=== PATIENT | female | born 1990 | race Caucasian/White ===

== ENCOUNTER 2017-01-20 05:02 | Inpatient (IN) | payer OTHER ==
[2017-01-20] MEDS ORDERED: Sodium Chloride 0.9% 2.5 ML Syringe FLUSH PRN (05:10)
[2017-01-20] MEDS ORDERED: Lidocaine 1% 50 ML MDV INJECT PRN (05:10)
[2017-01-20] MEDS ORDERED: Water For Irrigation,Sterile 1,000 ML Container IRR PRN (05:10)
[2017-01-20] MEDS ORDERED: Methylergonovine 0.2 MG/1 ML Amp IM PRN (05:10)
[2017-01-20] MEDS ORDERED: Terbutaline 1 MG/ML SDV SUBCUT PRN (05:10)
[2017-01-20] MEDS ORDERED: Carboprost Tromethamine 250 MCG/1 ML Amp IM PRN (05:10)
[2017-01-20] MEDS ORDERED: Butorphanol 1 MG/ML SDV IVPUSH PRN (05:10)
[2017-01-20] MEDS ORDERED: Misoprostol 200 MCG Tab PO PRN (05:10)
[2017-01-20] MEDS ORDERED: Sodium Chloride 0.9% 10 ML Syringe FLUSH PRN (05:10)
[2017-01-20] MEDS ORDERED: Oxytocin/0.9 % Sodium Chloride 30 UNIT/500 ML BAG IV SCH ×2 (05:15)
[2017-01-20] MEDS: Lactated Ringers 1,000 ML IV SCH ×5 (05:43→12:28)
[2017-01-20] MEDS ORDERED: Ropivacaine HCl/PF 100 ML ONE (10:29)
[2017-01-20] MEDS ORDERED: fentaNYL 100 MCG/2 ML SDV ONE (10:29)
[2017-01-20] MEDS ORDERED: Ropivacaine 0.2% 2 MG/ML 20 ML SDV ONE (10:29)
--- NOTE | 2017-01-20 10:49 | PCM.PREANE ---
Preanesthetic Assessment - Anesthesia/Transfusion/Family Hx Anesthesia History: Prior Anesthesia Without Reaction Family History of Anesthesia Reaction: No Transfusion History: No Prior Transfusion(s) - Review of Systems Other: Reports: None - Physical Assessment Height: 5 ft 5 in Weight: 81.647 kg ASA Class: 2 Mental Status: Alert & Oriented x3 Airway Class: Mallampati = 1 Dentition: Reports: Normal Dentition Thyro-Mental Finger Breadths: 3 Mouth Opening Finger Breadths: 3 ROM/Head Extension: Full - Lab Values: Laboratory Last Values WBC 12.15 K/uL (4.0-11.0) H 01/20/17 05:42 RBC 4.01 M/uL (4.30-5.90) L 01/20/17 05:42 Hgb 12.2 g/dL (12.0-16.0) 01/20/17 05:42 Hct 37.1 % (36.0-46.0) 01/20/17 05:42 MCV 92.5 fL (80.0-98.0) 01/20/17 05:42 MCH 30.4 pg (27.0-32.0) 01/20/17 05:42 MCHC 32.9 g/dL (31.0-37.0) 01/20/17 05:42 RDW Std Deviation 49.3 fl (28.0-62.0) 01/20/17 05:42 RDW Coeff of Stanton 15 % (11.0-15.0) 01/20/17 05:42 Plt Count 160 K/uL (150-400) 01/20/17 05:42 MPV 9.70 fL (7.40-12.00) 01/20/17 05:42 Nucleated RBC % 0.0 /100WBC 01/20/17 05:42 Nucleated RBCs # 0 K/uL 01/20/17 05:42 Blood Type A NEGATIVE 01/20/17 05:42 Antibody Screen NEGATIVE 01/20/17 05:42 - Allergies Allergies/Adverse Reactions: Allergies Allergy/AdvReac Type Severity Reaction Status Date / Time No Known Allergies Allergy Verified 01/20/17 05:17 - Blood Blood Available: Yes Product(s) Available: PRBC - Acknowledgements Anesthesia Type Planned: Epidural Pt an Appropriate Candidate for the Planned Anesthesia: Yes Alternatives and Risks of Anesthesia Discussed w Pt/Guardian: Yes Pt/Guardian Understands and Agrees with Anesthesia Plan: Yes PreAnesthesia Questionnaire - Past Health History Medical/Surgical History: Denies 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/Surgical History 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: , 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 Psychiatric History: Reports: Depression Hematologic History: Reports: Other (See Below) Other Hematologic History: irregular bleeding - Past Surgical History HEENT Surgical History: Reports: Adenoidectomy, Oral Surgery, Tonsillectomy Other HEENT Surgeries/Procedures: wisdom teeth extraction - SUBSTANCE USE Smoking Status *Q: Never Smoker Second Hand Smoke Exposure: No Days Per Week of Alcohol Use: 0 Recreational Drug Use History: No - HOME MEDS Home Medications: Home Meds Vit No.124/Iron/FA [ Vitamin Tablet] 1 each PO DAILY 11/25/14 [ History] - CURRENT (IN HOUSE) MEDS Current Meds: Current Medications Butorphanol Tartrate (Stadol) 1 mg IVPUSH Q1H PRN PRN Reason: Pain Carboprost Tromethamine (Hemabate Ds) 250 mcg IM ASDIRECTED PRN PRN Reason: Post Hemorrhage Lactated Ringer's (Ringers, Lactated) 1,000 mls @ 150 mls/hr IV ASDIRECTED AVELINA Last Admin: 01/20/17 07:29 Dose: 150 mls/hr Oxytocin/Sodium Chloride (Oxytocin 30 Unit/500 Ml-Ns) 30 unit in 500 mls @ 999 mls/hr IV TITRATE AVELINA Oxytocin/Sodium Chloride (Oxytocin 30 Unit/500 Ml-Ns) 30 unit in 500 mls @ 2 mls/hr IV TITRATE AVELINA; 2 MUNITS/MIN PRN Reason: Protocol Last Titration: 01/20/17 08:21 Dose: 10 munits/min, 10 mls/hr Lidocaine HCl (Xylocaine 1%) 50 ml INJECT .ONCE PRN PRN Reason: Laceration repair Methylergonovine Maleate (Methergine) 0.2 mg IM ASDIRECTED PRN PRN Reason: Post Hemorrhage Misoprostol (Cytotec) 200 mcg PO .ONCE PRN PRN Reason: Post Hemorrhage Sodium Chloride (Saline Flush) 10 ml FLUSH ASDIRECTED PRN PRN Reason: Keep Vein Open Sodium Chloride (Saline Flush) 2.5 ml FLUSH ASDIRECTED PRN PRN Reason: Keep Vein Open Sterile Water (Sterile Water For Irrigation) 1,000 ml IRR ASDIRECTED PRN PRN Reason: delivery Terbutaline Sulfate (Brethine) 0.25 mg SUBCUT ASDIRECTED PRN PRN Reason: Tacysystole Discontinued Medications Fentanyl (Sublimaze) Confirm Administered Dose 200 mcg .ROUTE .STK-MED ONE Stop: 01/20/17 10:30 Ropivacaine (Naropin 0.2%) Confirm Administered Dose 100 mls @ as directed .ROUTE .STK-MED ONE Stop: 01/20/17 10:30 Ropivacaine (Naropin 0.2%) Confirm Administered Dose 20 ml .ROUTE .STK-MED ONE Stop: 01/20/17 10:30
[2017-01-20] MEDS ORDERED: Docusate Sodium 100 MG Cap PO PRN (13:57)
[2017-01-20] MEDS ORDERED: Ibuprofen 400 MG Tab PO PRN (13:57)
[2017-01-20] MEDS ORDERED: Benzocaine/Menthol 20%-0.5% Spray 78 GM Cannister TOP PRN (13:57)
[2017-01-20] MEDS ORDERED: Acetaminophen 500 MG Tab PO PRN (13:57)
[2017-01-20] MEDS ORDERED: Witch Hazel Medicated Pads 40/Jar TOP PRN (13:57)
[2017-01-20] MEDS ORDERED: oxyCODONE 5 MG Tab PO PRN (13:57)
[2017-01-20] MEDS ORDERED: Aluminum Hydroxide/Magnesium Hydroxide/Simethicone Susp 30 ML Cup PO PRN (13:57)
[2017-01-20] MEDS ORDERED: Lanolin 100% Cream 7 GM Tube TOP PRN (13:57)
[2017-01-20] MEDS ORDERED: Bisacodyl 10 MG Supp RECTAL PRN (13:57)
[2017-01-20] MEDS: Ibuprofen 800 MG Tab PO PRN (17:44)
--- NOTE | 2017-01-20 21:50 | OR ---
SURGEON: Chapis Adame M.D. DATE OF PROCEDURE: 01/20/2017 DELIVERY NOTE PREOPERATIVE DIAGNOSES: 1. Thirty-nine and three weeks intrauterine . 2. Polyhydramnios. POSTOPERATIVE DIAGNOSES: 1. Thirty-nine and three weeks intrauterine . 2. Polyhydramnios. PROCEDURES PERFORMED: Spontaneous vaginal delivery and labial laceration repaired. ANESTHESIA: Epidural. ESTIMATED BLOOD LOSS: 350 mL. COMPLICATIONS: None. FINDINGS: Term male, scores of 9 at one minute and 9 at five minutes. Weight of 4190 g. Spontaneous delivery. Intact placenta with three-vessel cord. DISPOSITION: Infant to nursery and Mom in LDRP, stable. PROCEDURE DETAILS: Veronica is a 26-year-old, G3, P1, at 39 and 3 weeks gestation who at 2 a.m. presents on the morning of 01/20/2017 for a scheduled induction due to term gestation with polyhydramnios. On initial examination, she was found to be approximately 4 cm, 80% effaced, and -2 station. Admitted and routine labs were drawn. IV hydration was initiated. Pitocin induction was initiated. The patient was evaluated at approximately 8 a.m., and was still found to be 4 cm, 90% effaced, and -2 station. Amniotomy was performed as she is group B beta strep negative. Large amount of clear fluid was returned. The head is nicely - 2. The patient became increasingly uncomfortable in the next two hours, and underwent regional anesthesia from epidural. She underwent this satisfactorily, and became more comfortable. Blood pressure diastolic did drop slightly. This was corrected with the positional changes and fluid resuscitation. The patient began to make more rapid progress thereafter. Shortly, before 1 p.m., she was found to be complete 100% and +2 station. She began pushing efforts and pushed readily for the next approximately 20 minutes to 30 minutes and at that time, she was found to be +3 station. I was called for delivery. Upon my arrival, patient was placed in a modified dorsal lithotomy position, and prepped and draped in the usual aseptic manner. She was able to push for the next two contractions to deliver the 's head atraumatically and spontaneously, followed by anterior shoulder with the aid of Marybeth positioning and suprapubic pressure, and posterior shoulder and remainder of the body. There was a loose nuchal cord x1 reduced manually. The 's oropharynx and nares were bulb suctioned. Cord was clamped x2 and cut. was handed off to his mother with attending nursing staff at her side. Cord arterial, cord venous, and cord blood sampling were obtained. Light suprapubic pressure was applied while the placenta was delivered spontaneously intact. Vigorous fundal uterine massage was then applied while 30 units of Pitocin was delivered in 500 mL of IV fluid. Upon inspection of the cervix, vaginal sidewalls, and perineum, there was found to be an intact perineum. There were bilateral labial lacerations, which were repaired using 3-0 Vicryl. Hemostasis appeared evident. Uterus remained firm. The patient will remain in LDRP and in nursery. COUNT RESULTS: Sponge count and needle count were correct. PAULINE ROUSSEAU /[id number]
[2017-01-20] MEDS: Acetaminophen 500 MG Tab PO PRN (22:19)
--- NOTE | 2017-01-21 01:54 | PCM48HPAN ---
Post Anesthesia Note - EVALUATION WITHIN 48HRS OF ANESTHETIC Vital Signs in Normal Range: Yes Patient Participated in Evaluation: Yes Respiratory Function Stable: Yes Airway Patent: Yes Cardiovascular Function Stable: Yes Hydration Status Stable: Yes Pain Control Satisfactory: Yes Nausea and Vomiting Control Satisfactory: Yes Mental Status Recovered: Yes
[2017-01-21] MEDS: Ibuprofen 800 MG Tab PO PRN (06:06)
--- NOTE | 2017-01-21 08:06 | PCM.PNPP ---
- General Info Date of Service: 01/21/17 Subjective Update: Patient feels sore and swollen, but is ambulating without difficulty. Lochia is dissipating. She denies light headedness or dizziness. She was unable to void last night, so catheter replaced. Working with . - Review of Systems General: Reports: Fatigue. Denies: Fever, Weakness Pulmonary: Denies: Shortness of Breath Cardiovascular: Denies: Chest Pain, Palpitations, Lightheadedness Gastrointestinal: Denies: Abdominal Pain, Nausea, Vomiting Genitourinary: Reports: Retention Psychiatric: Reports: No Symptoms - General Info Date of Service: 01/21/17 - Patient Data Vital Signs - Most Recent: Last Vital Signs Temp 36.8 C 01/21/17 04:00 Pulse 77 01/21/17 04:00 Resp 18 01/21/17 04:00 BP 113/57 L 01/21/17 04:00 Pulse Ox 99 01/21/17 04:00 Weight - Most Recent: 81.647 kg I&O - Last 24 Hours: Intake & Output 01/20/17 01/21/17 01/21/17 22:59 06:59 14:59 Intake Total 750 Output Total 1100 Balance -350 Lab Results - Last 24 Hours: Laboratory Results - last 24 hr 01/20/17 01/21/17 Range/Units 14:43 05:05 Hgb 10.5 L (12.0-16.0) g/dL Hct 32.5 L (36.0-46.0) % Screen NEGATIVE (NEGATIVE) RhIG Candidate? YES Rhogam Indicated YES, BABY RH POS H Med Orders - Current: Current Medications Acetaminophen (Tylenol Extra Strength) 500 mg PO Q4H PRN PRN Reason: Pain Acetaminophen (Tylenol Extra Strength) 1,000 mg PO Q4H PRN PRN Reason: Pain Last Admin: 01/20/17 22:19 Dose: 1,000 mg Al Hydroxide/Mg Hydroxide (Mag-Al Plus) 30 ml PO Q8H PRN PRN Reason: Heartburn Benzocaine/Menthol (Dermoplast Pain Relief 20%-0.5% Murdo) 78 gm TOP ASDIRECTED PRN PRN Reason: Perineal Comfort Measure Last Admin: 01/20/17 17:42 Dose: 1 sprays Bisacodyl (Dulcolax) 10 mg RECTAL .ONCE PRN PRN Reason: Constipation Carboprost Tromethamine (Hemabate Ds) 250 mcg IM ASDIRECTED PRN PRN Reason: Post Hemorrhage Docusate Sodium (Colace) 100 mg PO BID PRN PRN Reason: Constipation Emollient Ointment (Lansinoh Hpa) 0 gm TOP ASDIRECTED PRN PRN Reason: Sore Nipples Last Admin: 01/20/17 17:44 Dose: 1 applic Lactated Ringer's (Ringers, Lactated) 1,000 mls @ 150 mls/hr IV ASDIRECTED AVELINA Last Admin: 01/20/17 12:28 Dose: 150 mls/hr Oxytocin/Sodium Chloride (Oxytocin 30 Unit/500 Ml-Ns) 30 unit in 500 mls @ 999 mls/hr IV TITRATE AVELINA Oxytocin/Sodium Chloride (Oxytocin 30 Unit/500 Ml-Ns) 30 unit in 500 mls @ 2 mls/hr IV TITRATE AVELINA; 2 MUNITS/MIN PRN Reason: Protocol Last Titration: 01/20/17 12:34 Dose: 2 munits/min, 2 mls/hr Ibuprofen (Motrin) 400 mg PO Q4H PRN PRN Reason: Pain Ibuprofen (Motrin) 800 mg PO Q6H PRN PRN Reason: Pain Last Admin: 01/21/17 06:06 Dose: 800 mg Methylergonovine Maleate (Methergine) 0.2 mg IM ASDIRECTED PRN PRN Reason: Post Hemorrhage Misoprostol (Cytotec) 200 mcg PO .ONCE PRN PRN Reason: Post Hemorrhage Oxycodone HCl (Oxycodone) 5 mg PO Q2H PRN PRN Reason: Pain Sodium Chloride (Saline Flush) 10 ml FLUSH ASDIRECTED PRN PRN Reason: Keep Vein Open Sodium Chloride (Saline Flush) 2.5 ml FLUSH ASDIRECTED PRN PRN Reason: Keep Vein Open Witch Sia (Tucks) 1 pad TOP ASDIRECTED PRN PRN Reason: comfort care Last Admin: 01/20/17 17:43 Dose: 1 applic Discontinued Medications Butorphanol Tartrate (Stadol) 1 mg IVPUSH Q1H PRN PRN Reason: Pain Fentanyl (Sublimaze) Confirm Administered Dose 200 mcg .ROUTE .[facility]-MED ONE Stop: 01/20/17 10:30 Ropivacaine (Naropin 0.2%) Confirm Administered Dose 100 mls @ as directed .ROUTE .STK-MED ONE Stop: 01/20/17 10:30 Lidocaine HCl (Xylocaine 1%) 50 ml INJECT .ONCE PRN PRN Reason: Laceration repair Ropivacaine (Naropin 0.2%) Confirm Administered Dose 20 ml .ROUTE .STK-MED ONE Stop: 01/20/17 10:30 Sterile Water (Sterile Water For Irrigation) 1,000 ml IRR ASDIRECTED PRN PRN Reason: delivery Last Admin: 01/20/17 14:03 Dose: 1,000 ml Terbutaline Sulfate (Brethine) 0.25 mg SUBCUT ASDIRECTED PRN PRN Reason: Tacysystole - Interaction Infant Disposition, : Sandwich in Room with Family Support Person: - Recovery Exam Fundal Tone: Firm Fundal Level: At Umbilicus Fundal Placement: Midline Lochia Amount: Scant Lochia Color: Rubra/Red Perineum Description: Edematous Episiotomy/Laceration: Approximated Bladder Status: Indwelling Catheter in Place Urinary Elimination: Indwelling Catheter - Exam General: Alert, Oriented Lungs: Normal Respiratory Effort Cardiovascular: Regular Rate, Regular Rhythm GI/Abdominal Exam: Soft, Non-Tender Skin: Warm Psy/Mental Status: Normal Affect - Problem List & Annotations (1) Vaginal delivery SNOMED Code(s): 150727605 Code(s): O80 - ENCOUNTER FOR FULL-TERM UNCOMPLICATED DELIVERY Status: Acute Current Visit: Yes Onset Date: 02/11/14 - Problem List Review Problem List Initiated/Reviewed/Updated: Yes - My Orders Last 24 Hours: My Active Orders 01/20/17 13:57 Patient Status [ADT] Routine May Shower [RC] ASDIRECTED Up ad Edie [RC] ASDIRECTED Vital Signs [RC] PER UNIT ROUTINE Acetaminophen [Tylenol Extra Strength] 1,000 mg PO Q4H PRN Acetaminophen [Tylenol Extra Strength] 500 mg PO Q4H PRN Alum Hydrox/Mag Hydrox/Simeth [Mag-Al Plus] 30 ml PO Q8H PRN Benzocaine/Menthol [Dermoplast Pain Relief 20%-0.5% Murdo] 78 gm TOP ASDIRECTED PRN Bisacodyl [Dulcolax] 10 mg RECTAL .ONCE PRN Docusate Sodium [Colace] 100 mg PO BID PRN Ibuprofen [Motrin] 400 mg PO Q4H PRN Ibuprofen [Motrin] 800 mg PO Q6H PRN Lanolin [Lansinoh HPA] See Dose Instructions TOP ASDIRECTED PRN Witch Sia [Tucks] 1 pad TOP ASDIRECTED PRN oxyCODONE 5 mg PO Q2H PRN Assess Lochia [WOMSER] Per Unit Routine Assess Uterine Involution [WOMSER] Per Unit Routine Breast Pump [WOMSER] Per Unit Routine Ice Therapy [OM.PC] Per Unit Routine Perineal Care [OM.PC] Per Unit Routine Peripheral IV Discontinue [OM.PC] Routine 01/20/17 14:43 SCREEN [BBK] Routine RH IMMUNE GLOBULIN [BBK] Routine RHOGAM, [RHIG WORKUP, ] [BBK] Routine 01/20/17 Lunch Regular Diet [DIET] 01/21/17 08:00 Ready for Discharge [RC] PER UNIT ROUTINE - Assessment Assessment:: PPD 1 status post - Plan Plan:: Continue PP Cares this morning and may remove catheter. Once able to void, patient would like to go home. Plan discharge to home later today. Discharge, infection and bleeding warnings reviewed. Follow up at [facility] 6weeks.
[2017-01-21] MEDS: Acetaminophen 500 MG Tab PO PRN (08:22)
[2017-01-21] MEDS ORDERED: Lidocaine 1% 50 ML MDV ONE (12:00)
[2017-01-21 16:24] VITALS: BP 114/69
== END 2017-01-21 17:00 | disposition home or self-care (01) | DRG 775 ==
LOC: MW.OBCHECK 05:02 → MW.OB 05:08 → OBSVTOIN 05:08
PROVIDERS: ADMIT Obstetrics & Gynecology; ATTEND Obstetrics & Gynecology
PROC: 10E0XZZ Delivery of Products of Conception, External Approach (ICD-10-PCS; principal; 2017-01-20)
PROC: 3E0P3VZ Introduction of Hormone into Female Reproductive, Percutaneous Approach (ICD-10-PCS; 2017-01-20)
PROC: 10907ZC Drainage of Amniotic Fluid, Therapeutic from Products of Conception, Via Natural or Artificial Opening (ICD-10-PCS; 2017-01-20)
PROC: 00HU33Z Insertion of Infusion Device into Spinal Canal, Percutaneous Approach (ICD-10-PCS; 2017-01-20)
PROC: 3E0R3BZ Introduction of Anesthetic Agent into Spinal Canal, Percutaneous Approach (ICD-10-PCS; 2017-01-20)
DX: O40.3XX0 Polyhydramnios, third trimester, not applicable or unspecified (principal); O69.81X0 Labor and delivery complicated by cord around neck, without compression, not applicable or unspecified; O70.0 First degree perineal laceration during delivery; Z3A.39 39 weeks gestation of pregnancy; Z37.0 Single live birth
CPT/HCPCS: 36415; 51701; 51702; 59025; 59409; 85014; 85018; 85027; 85460; 86850; 86900; 86901; A9270-GY; J2590; J2790; J7120

== ENCOUNTER 2019-08-02 23:30 | Inpatient (IN) | payer OTHER ==
[2019-08-03] MEDS ORDERED: Ropivacaine 0.2% 2 MG/ML 100 ML Infusion Bottle ONE (02:00)
[2019-08-03] MEDS ORDERED: Ondansetron 4 MG/2 ML SDV IVPUSH PRN (03:56)
[2019-08-03] MEDS ORDERED: Nalbuphine 10 MG/1 ML Vial IVPUSH PRN (03:56)
[2019-08-03] MEDS ORDERED: Methylergonovine 0.2 MG/1 ML Amp IM PRN (03:56)
[2019-08-03] MEDS ORDERED: Butorphanol 1 MG/ML SDV IVPUSH PRN (03:56)
[2019-08-03] MEDS ORDERED: Lidocaine 1% 50 ML MDV INJECT PRN (03:56)
[2019-08-03] MEDS ORDERED: Misoprostol 200 MCG Tab PO PRN (03:56)
[2019-08-03] MEDS ORDERED: Sodium Chloride 0.9% 2.5 ML Syringe FLUSH PRN (03:56)
[2019-08-03] MEDS ORDERED: Sodium Chloride 0.9% 10 ML Syringe FLUSH PRN (03:56)
[2019-08-03] MEDS ORDERED: Carboprost Tromethamine 250 MCG/1 ML Amp IM PRN (03:56)
[2019-08-03] MEDS ORDERED: Tranexamic Acid 1,000 MG in Sodium Chloride 0.9% 100 ML IV PRN (03:56)
[2019-08-03] MEDS ORDERED: Water For Irrigation,Sterile 1,000 ML Container IRR PRN (03:56)
[2019-08-03] MEDS ORDERED: Sodium Chloride 0.9% 10 ML SDV IV PRN (03:56)
[2019-08-03] MEDS ORDERED: Lactated Ringers 1,000 ML IV SCH (04:00)
[2019-08-03] MEDS ORDERED: Oxytocin/0.9 % Sodium Chloride 30 UNIT/500 ML BAG IV SCH ×2 (04:00→09:15)
[2019-08-03] MEDS ORDERED: fentaNYL 100 MCG/2 ML SDV ONE (06:36)
--- NOTE | 2019-08-03 07:18 | PCM.PREANE ---
Preanesthetic Assessment - Anesthesia/Transfusion/Family Hx Anesthesia History: Prior Anesthesia Without Reaction Family History of Anesthesia Reaction: No Transfusion History: No Prior Transfusion(s) - Physical Assessment NPO Status Date: 08/03/19 NPO Status Time: 00:05 Height: 1.65 m Weight: 79.379 kg - Lab Values: Laboratory Last Values WBC 11.28 K/uL (4.0-11.0) H 08/03/19 04:45 RBC 3.78 M/uL (4.30-5.90) L 08/03/19 04:45 Hgb 11.7 g/dL (12.0-16.0) L 08/03/19 04:45 Hct 35.7 % (36.0-46.0) L 08/03/19 04:45 MCV 94.4 fL (80.0-98.0) 08/03/19 04:45 MCH 31.0 pg (27.0-32.0) 08/03/19 04:45 MCHC 32.8 g/dL (31.0-37.0) 08/03/19 04:45 RDW Std Deviation 46.9 fl (28.0-62.0) 08/03/19 04:45 RDW Coeff of Stanton 14 % (11.0-15.0) 08/03/19 04:45 Plt Count 186 K/uL (150-400) 08/03/19 04:45 MPV 10.00 fL (7.40-12.00) 08/03/19 04:45 Nucleated RBC % 0.0 /100WBC 08/03/19 04:45 Nucleated RBCs # 0 K/uL 08/03/19 04:45 Urine Color YELLOW 08/02/19 23:50 Urine Appearance CLEAR 08/02/19 23:50 Urine pH 6.0 (5.0-8.0) 08/02/19 23:50 Ur Specific Leonard 1.025 (1.001-1.035) 08/02/19 23:50 Urine Protein NEGATIVE mg/dL (NEGATIVE) 08/02/19 23:50 Urine Glucose (UA) NEGATIVE mg/dL (NEGATIVE) 08/02/19 23:50 Urine Ketones NEGATIVE mg/dL (NEGATIVE) 08/02/19 23:50 Urine Occult Blood TRACE-INTACT (NEGATIVE) H 08/02/19 23:50 Urine Nitrite NEGATIVE (NEGATIVE) 08/02/19 23:50 Urine Bilirubin NEGATIVE (NEGATIVE) 08/02/19 23:50 Urine Urobilinogen 0.2 EU/dL (<2.0) 08/02/19 23:50 Ur Leukocyte Esterase NEGATIVE (NEGATIVE) 08/02/19 23:50 Blood Type A NEGATIVE 08/03/19 04:45 Antibody Screen NEGATIVE 08/03/19 04:45 - Allergies Allergies/Adverse Reactions: Allergies Allergy/AdvReac Type Severity Reaction Status Date / Time No Known Allergies Allergy Verified 01/20/17 05:17 - Acknowledgements Anesthesia Type Planned: Epidural Pt an Appropriate Candidate for the Planned Anesthesia: Yes Alternatives and Risks of Anesthesia Discussed w Pt/Guardian: Yes Pt/Guardian Understands and Agrees with Anesthesia Plan: Yes PreAnesthesia Questionnaire - Past Health History Medical/Surgical History: Denies 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: , 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 Psychiatric History: Reports: Depression Hematologic History: Reports: Other (See Below) Other Hematologic History: irregular bleeding - Past Surgical History HEENT Surgical History: Reports: Adenoidectomy, Oral Surgery, Tonsillectomy Other HEENT Surgeries/Procedures: wisdom teeth extraction - SUBSTANCE USE Smoking Status *Q: Never Smoker Second Hand Smoke Exposure: No Recreational Drug Use History: No - HOME MEDS Home Medications: Home Meds Vit No.124/Iron/Folic [ Vitamin Tablet] 1 each PO DAILY [History] - CURRENT (IN HOUSE) MEDS Current Meds: Current Medications Butorphanol Tartrate (Stadol) 1 mg IVPUSH Q1H PRN PRN Reason: Pain Carboprost Tromethamine (Hemabate Ds) 250 mcg IM ASDIRECTED PRN PRN Reason: Post Hemorrhage Tranexamic Acid 1,000 mg/ (Sodium Chloride) 110 mls @ 660 mls/hr IV ONETIME PRN PRN Reason: Bleeding Lactated Ringer's (Ringers, Lactated) 1,000 mls @ 150 mls/hr IV ASDIRECTED AVELINA Oxytocin/Sodium Chloride (Oxytocin 30 Unit/500 Ml-Ns) 30 unit in 500 mls @ 500 mls/hr IV TITRATE AVELINA Lidocaine HCl (Xylocaine 1%) 50 ml INJECT ONETIME PRN PRN Reason: Laceration repair Methylergonovine Maleate (Methergine) 0.2 mg IM ASDIRECTED PRN PRN Reason: Post Hemorrhage Misoprostol (Cytotec) 200 mcg PO ONETIME PRN PRN Reason: Post Hemorrhage Nalbuphine HCl (Nubain) 10 mg IVPUSH Q1H PRN PRN Reason: Pain (severe 7-10) Ondansetron HCl (Zofran) 4 mg IVPUSH Q4H PRN PRN Reason: Nausea/Vomiting Sodium Chloride (Saline Flush) 10 ml FLUSH ASDIRECTED PRN PRN Reason: Keep Vein Open Sodium Chloride (Saline Flush) 2.5 ml FLUSH ASDIRECTED PRN PRN Reason: Keep Vein Open Sodium Chloride (Normal Saline) 10 ml IV ASDIRECTED PRN PRN Reason: IV Use Sterile Water (Sterile Water For Irrigation) 1,000 ml IRR ASDIRECTED PRN PRN Reason: delivery Discontinued Medications Fentanyl (Sublimaze) Confirm Administered Dose [facility] Stop: 08/03/19 06:37
--- NOTE | 2019-08-03 07:26 | PCM.PRNOTE ---
- Free Text/Narrative Note: Anes NOte Patient requests epidural for L&D. Sitting position, Level L3-L4 midline approach. Sterile technique, chloraprep scrub to lumbar area. Sterile fenestrated drape applied. Epidural space easily achieved single attempt with ease using DEACON technique. DEACON at 3 cm. Cath threaded 5 cm with ease. Cath secured at 10 cm at skin using sterile clear adhesive dressing. 0705 Test 3 cc 1.5% lido with epi negative. 0708 LOad 10 cc 0.2% ropiviciane wiht 1 mcg cc fentanyl in slow divided doses. 0712 Pump started wtih 90 cc same solution. Rate is 8 cc hr with 6 cc Scooter well. Time with patient [id number] Bret Sandhu CRNA
[2019-08-03] MEDS ORDERED: Terbutaline 1 MG/ML SDV SUBCUT PRN (09:15)
[2019-08-03] MEDS ORDERED: Lanolin 100% Cream 7 GM Tube TOP PRN (12:25)
[2019-08-03] MEDS ORDERED: Witch Hazel Medicated Pads 40/Jar TOP PRN (12:25)
[2019-08-03] MEDS ORDERED: Benzocaine/Menthol 20%-0.5% Spray 78 GM Cannister TOP PRN (12:25)
[2019-08-03] MEDS ORDERED: oxyCODONE 5 MG Tab PO PRN (12:25)
[2019-08-03] MEDS ORDERED: Bisacodyl 10 MG Supp RECTAL PRN (12:25)
[2019-08-03] MEDS ORDERED: Ibuprofen 400 MG Tab PO PRN (12:25)
[2019-08-03] MEDS ORDERED: Acetaminophen 500 MG Tab PO PRN ×2 (12:25)
[2019-08-03] MEDS ORDERED: Aluminum Hydroxide/Magnesium Hydroxide/Simethicone Susp 30 ML Cup PO PRN (12:25)
[2019-08-03] MEDS ORDERED: Docusate Sodium 100 MG Cap PO PRN (12:25)
--- NOTE | 2019-08-03 12:31 | PCM.OPNOTE ---
- General Post-Op/Procedure Note Date of Surgery/Procedure: 08/03/19 Operative Procedure(s): /1st left labial laceration, repaired Findings: Viable male APGARs 9,9 weight pending. Spontaneous delivery intact placenta with 3V cord. Pre Op Diagnosis: 38/3 week IUP. Labor Post-Op Diagnosis: Same Anesthesia Technique: Epidural Primary Surgeon: Chapis Adame EBL in mLs: 250 Complications: none known Condition: Stable Free Text/Narrative:: Dictation [id number]
[2019-08-03] MEDS: Ibuprofen 800 MG Tab PO PRN (18:11)
--- NOTE | 2019-08-03 20:45 | OR ---
SURGEON: Chapis Adame M.D. DATE OF PROCEDURE: 08/03/2019 PREOPERATIVE DIAGNOSES: A 38-3/7 weeks' intrauterine , active labor. POSTOPERATIVE DIAGNOSES: A 38-3/7 weeks' intrauterine , active labor. PROCEDURE: Spontaneous vaginal delivery, first-degree labial laceration repaired. PRIMARY SURGEON: Chapis Adame MD ANESTHESIA: Epidural. ESTIMATED BLOOD LOSS: 250 mL. COMPLICATIONS: None known. FINDINGS: Viable male. score of 9 at one minute and 9 at five minutes. Spontaneous delivery, intact placenta, 3-vessel cord. DISPOSITION: to nursery, mom in LDRP. PROCEDURE DETAILS: Veronica is a 29-year-old, G4, P 2-0-1-2, at 38-3/7 weeks' gestational age who presented on the morning of 08/03/2019 with regular contractions. She was found to be 4 cm with intensifying contractions. Therefore, she was admitted, routine labs drawn, IV hydration was initiated. She underwent epidural, became more comfortable. Shortly thereafter, had amniotomy performed. Clear fluid was returned. However, contractions began to space out at this point, therefore, began Pitocin augmentation. heart tones were category 1. The patient responded nicely to the Pitocin augmentation and progressed to 9.5 cm shortly before 12 p.m. The patient within the next 20 minutes progressed to complete, began pushing efforts. I was called for delivery. Upon my arrival, the patient was placed in modified dorsal lithotomy position, was prepped and draped in the usual aseptic manner. Continued with pushing efforts, was able to deliver infant's head atraumatically spontaneously, followed by anterior shoulder, posterior shoulder, and the remainder of the body without difficulty. The 's oropharynx and nares were bulb suctioned. Geff was handed off to his mother with attending nursing staff at the side. After a delay, the cord was clamped x2 and cut. Cord arterial, cord venous, cord blood sampling obtained. Light pressure was applied while the placenta was delivered spontaneously intact. Vigorous fundal uterine massage was then applied while 30 units of Pitocin was delivered in 500 mL of IV fluid. Upon inspection of cervix, vaginal sidewalls, and perineum, there was found to be a first-degree right labial laceration. This was repaired using 3-0 Vicryl in the usual fashion. Hemostasis appeared evident. Uterus remained firm. Sponge, instrument, and needle count was correct. The patient remained in LDRP, infant to nursery. PAULINE / SOHAM /[id number]
--- NOTE | 2019-08-03 23:45 | PCM48HPAN ---
Post Anesthesia Note - EVALUATION WITHIN 48HRS OF ANESTHETIC Vital Signs in Normal Range: Yes Patient Participated in Evaluation: Yes Respiratory Function Stable: Yes Airway Patent: Yes Cardiovascular Function Stable: Yes Hydration Status Stable: Yes Pain Control Satisfactory: Yes Nausea and Vomiting Control Satisfactory: Yes Mental Status Recovered: Yes Vital Signs: Last Vital Signs Temp 36.6 C 08/03/19 20:13 Pulse 74 08/03/19 20:13 Resp 15 08/03/19 20:13 BP 102/55 L 08/03/19 21:00 Pulse Ox 95 08/03/19 20:13
[2019-08-04] MEDS: Ibuprofen 800 MG Tab PO PRN ×2 (02:20→08:28)
--- NOTE | 2019-08-04 09:47 | PCM.PNPP ---
- General Info Date of Service: 08/04/19 Subjective Update: Unable to void yesterday, which is typical for her after delivery. Thus replaced cabrera overnight. Otherwise, pain well controlled. Denies light headedness or dizziness. Lochia is dissipating. is going well. She would like to go home later today once able to void. - Review of Systems General: Reports: No Symptoms HEENT: Reports: No Symptoms Pulmonary: Reports: No Symptoms Cardiovascular: Reports: No Symptoms Gastrointestinal: Reports: No Symptoms Genitourinary: Reports: Retention Musculoskeletal: Reports: No Symptoms Skin: Reports: Diaphoresis Neurological: Reports: No Symptoms Psychiatric: Reports: No Symptoms - General Info Date of Service: 08/04/19 - Patient Data Vital Signs - Most Recent: Last Vital Signs Temp 36.4 C 08/04/19 04:51 Pulse 66 08/04/19 04:51 Resp 16 08/04/19 04:51 BP 99/59 L 08/04/19 04:51 Pulse Ox 96 08/04/19 04:51 Weight - Most Recent: 79.379 kg I&O - Last 24 Hours: Intake & Output 08/03/19 08/04/19 08/04/19 22:59 06:59 14:59 Intake Total 2 Output Total 1124 650 Balance -1123 -650 Lab Results - Last 24 Hours: Laboratory Results - last 24 hr 08/03/19 08/03/19 08/04/19 Range/Units 12:08 13:33 06:23 Hgb 10.6 L (12.0-16.0) g/dL Hct 32.7 L (36.0-46.0) % Cord ABG pH 7.311 (7.18-7.38) Cord ABG Base Excess -5 (-10--2) Cord VBG pH 7.301 (7.25-7.45) Cord VBG Base Excess -5 (-10--2) Screen NEGATIVE (NEGATIVE) RhIG Candidate? YES Rhogam Indicated YES, BABY RH POS H Med Orders - Current: Current Medications Acetaminophen (Tylenol Extra Strength) 500 mg PO Q4H PRN PRN Reason: Pain Acetaminophen (Tylenol Extra Strength) 1,000 mg PO Q4H PRN PRN Reason: Pain Last Admin: 08/03/19 18:11 Dose: 1,000 mg Al Hydroxide/Mg Hydroxide (Mag-Al Plus) 30 ml PO Q8H PRN PRN Reason: Heartburn Benzocaine/Menthol (Dermoplast Pain Relief 20%-0.5% [place]) 78 gm TOP ASDIRECTED PRN PRN Reason: Perineal Comfort Measure Last Admin: 08/03/19 18:12 Dose: 1 can Bisacodyl (Dulcolax) 10 mg RECTAL ONETIME PRN PRN Reason: Constipation Carboprost Tromethamine (Hemabate Ds) 250 mcg IM ASDIRECTED PRN PRN Reason: Post Hemorrhage Docusate Sodium (Colace) 100 mg PO BID PRN PRN Reason: Constipation Last Admin: 08/03/19 21:40 Dose: 100 mg Emollient Ointment (Lansinoh Hpa) 0 gm TOP ASDIRECTED PRN PRN Reason: Sore Nipples Tranexamic Acid 1,000 mg/ (Sodium Chloride) 110 mls @ 660 mls/hr IV ONETIME PRN PRN Reason: Bleeding Lactated Ringer's (Ringers, Lactated) 1,000 mls @ 150 mls/hr IV ASDIRECTED AVELINA Last Admin: 08/03/19 07:37 Dose: 150 mls/hr Oxytocin/Sodium Chloride (Oxytocin 30 Unit/500 Ml-Ns) 30 unit in 500 mls @ 500 mls/hr IV TITRATE AVELINA Oxytocin/Sodium Chloride (Oxytocin 30 Unit/500 Ml-Ns) 30 unit in 500 mls @ 2 mls/hr IV TITRATE AVELINA; Protocol Last Titration: 08/03/19 10:40 Dose: 8 munits/min, 8 mls/hr Ibuprofen (Motrin) 400 mg PO Q4H PRN PRN Reason: Pain Ibuprofen (Motrin) 800 mg PO Q6H PRN PRN Reason: Pain Last Admin: 08/04/19 08:28 Dose: 800 mg Methylergonovine Maleate (Methergine) 0.2 mg IM ASDIRECTED PRN PRN Reason: Post Hemorrhage Ondansetron HCl (Zofran) 4 mg IVPUSH Q4H PRN PRN Reason: Nausea/Vomiting Oxycodone HCl (Oxycodone) 5 mg PO Q2H PRN PRN Reason: Pain Sodium Chloride (Saline Flush) 10 ml FLUSH ASDIRECTED PRN PRN Reason: Keep Vein Open Sodium Chloride (Saline Flush) 2.5 ml FLUSH ASDIRECTED PRN PRN Reason: Keep Vein Open Sodium Chloride (Normal Saline) 10 ml IV ASDIRECTED PRN PRN Reason: IV Use Sterile Water (Sterile Water For Irrigation) 1,000 ml IRR ASDIRECTED PRN PRN Reason: delivery Last Admin: 08/03/19 13:42 Dose: 1,000 ml Witch Sia (Tucks) 1 pad TOP ASDIRECTED PRN PRN Reason: comfort care Last Admin: 08/03/19 18:12 Dose: 1 tub Discontinued Medications Butorphanol Tartrate (Stadol) 1 mg IVPUSH Q1H PRN PRN Reason: Pain Fentanyl (Sublimaze) Confirm Administered Dose 100 mcg .ROUTE .STK-MED ONE Stop: 08/03/19 06:37 Lidocaine HCl (Xylocaine 1%) 50 ml INJECT ONETIME PRN PRN Reason: Laceration repair Misoprostol (Cytotec) 200 mcg PO ONETIME PRN PRN Reason: Post Hemorrhage Nalbuphine HCl (Nubain) 10 mg IVPUSH Q1H PRN PRN Reason: Pain (severe 7-10) Ropivacaine (Naropin 0.2%) 200 mg .ROUTE .STK-MED ONE Stop: 08/03/19 02:01 Terbutaline Sulfate (Brethine) 0.25 mg SUBCUT ASDIRECTED PRN PRN Reason: Tacysystole - Infant Interaction Support Person: Mother - Recovery Exam Fundal Tone: Firm Fundal Level: 1 Fingerbreadths Below Umbilicus Fundal Placement: Midline Lochia Amount: Small Lochia Color: Rubra/Red Perineum Description: Edematous Episiotomy/Laceration: Approximated Bladder Status: Indwelling Catheter in Place Urinary Elimination: Indwelling Catheter - Exam General: Alert, Oriented Lungs: Normal Respiratory Effort Cardiovascular: Regular Rate, Regular Rhythm GI/Abdominal Exam: Soft, Non-Tender Extremities: Pedal Edema (trace). No: Katiuska's Sign Skin: Warm, Dry, Intact Neurological: No New Focal Deficit Psy/Mental Status: Alert, Normal Affect, Normal Mood - Problem List & Annotations (1) Vaginal delivery SNOMED Code(s): 856114412 Code(s): O80 - ENCOUNTER FOR FULL-TERM UNCOMPLICATED DELIVERY Status: Acute Current Visit: No Onset Date: 02/11/14 - Problem List Review Problem List Initiated/Reviewed/Updated: Yes - My Orders Last 24 Hours: My Active Orders 08/03/19 09:15 Oxytocin/0.9 % Sodium Chloride [Oxytocin 30 Unit/500 ML-NS] 30 unit in 500 ml IV TITRATE Medication Administration Instruction [OM.PC] Q3H 08/03/19 12:25 Patient Status [ADT] Routine Cooling Warming Measures [RC] ASDIRECTED Notify Provider Vital Signs [RC] ASDIRECTED Up ad Edie [RC] ASDIRECTED Vital Signs [RC] PER UNIT ROUTINE Acetaminophen [Tylenol Extra Strength] 1,000 mg PO Q4H PRN Acetaminophen [Tylenol Extra Strength] 500 mg PO Q4H PRN Alum Hydrox/Mag Hydrox/Simeth [Mag-Al Plus] 30 ml PO Q8H PRN Benzocaine/Menthol [Dermoplast Pain Relief 20%-0.5% [place]] 78 gm TOP ASDIRECTED PRN Docusate Sodium [Colace] 100 mg PO BID PRN Ibuprofen [Motrin] 400 mg PO Q4H PRN Ibuprofen [Motrin] 800 mg PO Q6H PRN Lanolin [Lansinoh HPA] See Dose Instructions TOP ASDIRECTED PRN bisacodyL [Dulcolax] 10 mg RECTAL ONETIME PRN oxyCODONE 5 mg PO Q2H PRN witch Sia [Tucks] 1 pad TOP ASDIRECTED PRN Assess Lochia [WOMSER] Per Unit Routine Assess Uterine Involution [WOMSER] Per Unit Routine Ice Therapy [OM.PC] Per Unit Routine Perineal Care [OM.PC] Per Unit Routine Peripheral IV Discontinue [OM.PC] Routine Sitz Bath [OM.PC] Per Unit Routine 08/04/19 09:43 Ready for Discharge [RC] PER UNIT ROUTINE - Assessment Assessment:: PPD 1 status post - Plan Plan:: Remove cabrera this am and monitor. Once able to void, allow discharge to home. Discharge instructions reviewed. Follow up at [facility] in 6 weeks
[2019-08-04 14:38] VITALS: BP 113/56; PULSE 67
== END 2019-08-04 15:50 | disposition home or self-care (01) | DRG 807 ==
LOC: MW.OB 23:30 → MW.OBCHECK 23:30 → MW.OB 08-03 03:56 → OBSVTOIN 08-03 12:25 → MW.OB 08-03 15:45
PROVIDERS: ADMIT Obstetrics & Gynecology; ATTEND Obstetrics & Gynecology
PROC: 10E0XZZ Delivery of Products of Conception, External Approach (ICD-10-PCS; principal; 2019-08-03)
PROC: 10907ZC Drainage of Amniotic Fluid, Therapeutic from Products of Conception, Via Natural or Artificial Opening (ICD-10-PCS; 2019-08-03)
PROC: 0HQ9XZZ Repair Perineum Skin, External Approach (ICD-10-PCS; 2019-08-03)
PROC: 3E0R3BZ Introduction of Anesthetic Agent into Spinal Canal, Percutaneous Approach (ICD-10-PCS; 2019-08-03)
PROC: 00HU33Z Insertion of Infusion Device into Spinal Canal, Percutaneous Approach (ICD-10-PCS; 2019-08-03)
PROC: 3E0334Z Introduction of Serum, Toxoid and Vaccine into Peripheral Vein, Percutaneous Approach (ICD-10-PCS; 2019-08-03)
DX: O26.893 Other specified pregnancy related conditions, third trimester (principal); Z37.0 Single live birth; O70.0 First degree perineal laceration during delivery; Z3A.38 38 weeks gestation of pregnancy; Z67.11 Type A blood, Rh negative
CPT/HCPCS: 01967; 36415; 51702; 81003; 82803; 85014; 85018; 85027; 85460; 86592; 86593; 86850; 86900; 86901; A9270-GY; J2590; J2792; J2795; J3010; J7120

== ENCOUNTER 2020-02-24 11:46 | Day surgery (SDC) | payer OTHER ==
[~2020-02-24 11:46] MED LIST: Lactated Ringers 1,000 ML IV SCH; Midazolam 1 MG/ML 2 ML SDV ONE; Ondansetron 4 MG/2 ML SDV ONE; Propofol 200 MG/20 ML SDV ONE; Rocuronium Bromide 50 MG/5 ML Syringe ONE; fentaNYL 100 MCG/2 ML SDV ONE
[2020-02-24] MEDS ORDERED: Bupivacaine 0.25% 10 ML SDV ONE (12:49)
--- NOTE | 2020-02-24 13:08 | PCM.PREANE ---
Preanesthetic Assessment - Anesthesia/Transfusion/Family Hx Anesthesia History: Prior Anesthesia Without Reaction Family History of Anesthesia Reaction: No Transfusion History: No Prior Transfusion(s) Intubation History: Unknown - Review of Systems General: No Symptoms Pulmonary: No Symptoms Cardiovascular: No Symptoms Gastrointestinal: No Symptoms Neurological: No Symptoms Other: Reports: None - Physical Assessment Vital Signs: Last Vital Signs Temp 36.0 C L 02/24/20 12:47 Pulse 73 02/24/20 12:47 Resp 16 02/24/20 12:47 BP 103/56 L 02/24/20 12:47 Pulse Ox 99 02/24/20 12:47 Height: 5 ft 6 in Weight: 57.153 kg ASA Class: 5E Emergency Airway Class: Mallampati = 1 Dentition: Reports: Normal Dentition Thyro-Mental Finger Breadths: 3 Mouth Opening Finger Breadths: 3 ROM/Head Extension: Full Lungs: Clear to Auscultation, Normal Respiratory Effort Cardiovascular: Regular Rate, Regular Rhythm - Lab Values: Laboratory Last Values Urine HCG, Qual NEGATIVE (NEGATIVE) 02/24/20 11:50 SARS-CoV-2 RNA (HEAVENLY) NEGATIVE (NEGATIVE) 02/24/20 11:50 - Allergies Allergies/Adverse Reactions: Allergies Allergy/AdvReac Type Severity Reaction Status Date / Time No Known Allergies Allergy Verified 02/23/20 12:01 - Blood Blood Available: No - Anesthesia Plan Pre-Op Medication Ordered: None - Acknowledgements Anesthesia Type Planned: General Anesthesia Pt an Appropriate Candidate for the Planned Anesthesia: Yes Alternatives and Risks of Anesthesia Discussed w Pt/Guardian: Yes Pt/Guardian Understands and Agrees with Anesthesia Plan: Yes PreAnesthesia Questionnaire - Past Health History Medical/Surgical History: Denies Medical/Surgical History HEENT History: Reports: Other (See Below) Other HEENT History: wears contacts/glasses Cardiovascular History: Reports: Heart Murmur Respiratory History: Reports: None Gastrointestinal History: Reports: None Genitourinary History: Reports: None 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: , 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 Musculoskeletal History: Reports: None Neurological History: Reports: None Psychiatric History: Reports: Anxiety, Depression Endocrine/Metabolic History: Reports: None Hematologic History: Reports: None Immunologic History: Reports: None Oncologic (Cancer) History: Reports: None Dermatologic History: Reports: None - Past Surgical History Head Surgeries/Procedures: Reports: None HEENT Surgical History: Reports: Adenoidectomy, Oral Surgery, Tonsillectomy Other HEENT Surgeries/Procedures: wisdom teeth extraction Cardiovascular Surgical History: Reports: None Respiratory Surgical History: Reports: None GI Surgical History: Reports: None Female Surgical History: Reports: None Endocrine Surgical History: Reports: None Neurological Surgical History: Reports: None Musculoskeletal Surgical History: Reports: None Oncologic Surgical History: Reports: None Dermatological Surgical History: Reports: None - SUBSTANCE USE Tobacco Use Status *Q: Never Tobacco User - HOME MEDS Home Medications: Home Meds Pnv No.95/Ferrous Fum/Folic AC [ Vitamin Tablet] 1 tab PO DAILY 02/23/20 [History] - CURRENT (IN HOUSE) MEDS Current Meds: Current Medications Lactated Ringer's (Ringers, Lactated) 1,000 mls @ 125 mls/hr IV ASDIRECTED AVELINA Discontinued Medications Bupivacaine HCl (Sensorcaine-Mpf 0.25%) Confirm Administered Dose 10 ml .ROUTE .STK-MED ONE Stop: 02/24/20 12:50 Fentanyl (Sublimaze) Confirm Administered Dose 100 mcg .ROUTE .STK-MED ONE Stop: 02/24/20 10:09 Lidocaine HCl (Xylocaine-Mpf 1%) Confirm Administered Dose 5 ml .ROUTE .STK-MED ONE Stop: 02/24/20 10:08 Midazolam HCl (Versed 1 Mg/Ml) Confirm Administered Dose 2 mg .ROUTE .STK-MED ONE Stop: 02/24/20 10:09 Ondansetron HCl (Zofran) Confirm Administered Dose 4 mg .ROUTE .STK-MED ONE Stop: 02/24/20 10:08 Propofol (Diprivan 20 Ml) Confirm Administered Dose 200 mg .ROUTE .STK-MED ONE Stop: 02/24/20 10:09 Rocuronium [place] (Rocuronium [place]) Confirm Administered Dose 50 mg .ROUTE .STK-MED ONE Stop: 02/24/20 10:08
[2020-02-24] MEDS ORDERED: Dexamethasone 4 MG/ML 5 ML MDV ONE (13:26)
[2020-02-24] MEDS ORDERED: Ketorolac 30 MG/ML SDV ONE (13:26)
[2020-02-24] MEDS ORDERED: fentaNYL 100 MCG/2 ML SDV ONE (13:26)
--- NOTE | 2020-02-24 14:20 | PCM.OPNOTE ---
- General Post-Op/Procedure Note Date of Surgery/Procedure: 02/24/20 Operative Procedure(s): Operative laparoscopy with IUD retrieval. Reintroduction of new IUD under laparoscopic surveillance Findings: IUD in right posterior cul de sac, otherwise normal appearing uterus/ovaries Pre Op Diagnosis: Malpositioned IUD Post-Op Diagnosis: Same Anesthesia Technique: General ET Tube Primary Surgeon: Chapis Adame Pathology: IUD Fluid Replacement, Intraop: 800 EBL in mLs: 10 Complications: none known Condition: Stable Free Text/Narrative:: Dictation [id number]
[2020-02-24] MEDS ORDERED: Meperidine PF 25 MG/ML Syringe IVPUSH ONE (14:21)
[2020-02-24] MEDS ORDERED: Meperidine PF 25 MG/ML Syringe ONE (14:24)
--- NOTE | 2020-02-24 14:42 | PCM.POSTAN ---
POST ANESTHESIA ASSESSMENT - MENTAL STATUS Mental Status: Alert - VITAL SIGNS Vital Signs: Last Vital Signs Temp 36.4 C 02/24/20 14:06 Pulse 45 L 02/24/20 14:26 Resp 12 02/24/20 14:26 BP 111/58 L 02/24/20 14:26 Pulse Ox 99 02/24/20 14:26 - RESPIRATORY Respiratory Status: Respiratory Rate WNL - CARDIOVASCULAR CV Status: Pulse Rate WNL - GASTROINTESTINAL GI Status: No Symptoms - PAIN Pain Score: 2 (Well controlled) - POST OP HYDRATION Hydration Status: Adequate & Stable - OBSERVATIONS Free Text/Narrative:: Doing well. Demerol for shivering, good resolve. Ready for phase 2
[2020-02-24 15:19] VITALS: BP 99/46; PULSE 52
--- NOTE | 2020-02-24 15:38 | PCM48HPAN ---
Post Anesthesia Note - EVALUATION WITHIN 48HRS OF ANESTHETIC Vital Signs in Normal Range: Yes Patient Participated in Evaluation: Yes Respiratory Function Stable: Yes Airway Patent: Yes Hydration Status Stable: Yes Pain Control Satisfactory: Yes (Some cramping.) Nausea and Vomiting Control Satisfactory: Yes Mental Status Recovered: Yes Vital Signs: Last Vital Signs Temp 36.4 C 02/24/20 14:41 Pulse 52 L 02/24/20 15:11 Resp 16 02/24/20 15:11 BP 99/46 L 02/24/20 15:11 Pulse Ox 99 02/24/20 15:11 - COMMENTS/OBSERVATIONS Free Text/Narrative:: Doing well. Ready for discharge.
--- NOTE | 2020-02-24 15:52 | OR ---
SURGEON: Chapis Adame M.D. DATE OF PROCEDURE: 02/24/2020 PREOPERATIVE DIAGNOSIS: Malpositioned intrauterine device. POSTOPERATIVE DIAGNOSIS: Malpositioned intrauterine device. PROCEDURE: Operative laparoscopy with retrieval of intrauterine device and reintroduction of new intrauterine device under laparoscopic surveillance. ANESTHESIA: General endotracheal anesthesia. ESTIMATED BLOOD LOSS: 10 mL. FLUIDS: 800 mL of crystalloid. COMPLICATIONS: None. FINDINGS: Normal-appearing pelvis overall. The IUD is located in the cul-de-sac as expected based on ultrasound images. DISPOSITION: The patient to PACU, stable. INDICATIONS: Veronica is a 29-year-old female who has undergone a progestin IUD insertion. Subsequently started having increasing cramps and discomfort more than usual and was simply not able to feel her strings. Therefore, she was evaluated. Strings were not visualized on vaginal exam. Initial ultrasound did not reveal an IUD in the endometrial cavity. An abdominal x-ray revealed that the IUD did appear to be in the pelvis. Followup ultrasound did actually visualize the ultrasound along the posterior cul-de-sac, extrauterine. Options at this juncture were discussed with patient, and we are electing to proceed with a laparoscopic retrieval of the perforated IUD. After long discussion, the patient would like to trial introduction of another IUD under laparoscopic surveillance. Risks of procedure were discussed. Proper consent obtained. DESCRIPTION OF PROCEDURE: The patient was taken to the operating room where she underwent general endotracheal anesthesia, was placed in modified dorsal lithotomy position. She was prepped and draped in the usual sterile fashion. SCDs to the lower extremities. The bladder was drained via Roy. Received Ancef prophylactically. Time-out was performed. Speculum was introduced into the vagina. A uterine Hulka manipulator was gently placed. Speculum was removed. Gloves changed. Attention turned abdominally. Infraumbilically 0.25% Marcaine was introduced. A midline sagittal 5 mm skin incision was created. Anterior abdominal wall tented upward. Veress needle was introduced. Pneumoperitoneum was achieved. Veress needle was removed. Trocar was introduced and with laparoscope, peritoneal contents were identified. The uterus appeared mobile. A suprapubic midline and left lower quadrant 5 mm trocar were introduced after prepping the region with 0.25% Marcaine and creating 5 mm skin incisions. The uterus was able to be tented upward. The pelvis was closely inspected, and the IUD was visualized along the posterior cul-de-sac region. The string was grasped and delivered through the left lower quadrant trocar site and will be sent to Pathology for analysis. Attention was now turned to inspection of the pelvis. No abnormalities were noted. It did appear that there was a probable area in the mid fundal anterior region of the uterus where the IUD probably perforated. Therefore, under laparoscopic surveillance, attention was once again turned vaginally. The HedgeChatterka uterine manipulator was removed. Allis clamp was placed on the posterior lip of the cervix. The new Mirena IUD was prepped according to early intervention specialist protocol, introduced to the fundus, and retracted slightly; arms released; and loading device was removed in its entirety. There was no evidence of perforation whatsoever at the reintroduction. Took care to introduce the IUD more towards the posterior aspect of this retropubic rigid uterus. The strings were now trimmed. The speculum was removed. Hemostasis appeared evident. Gloves once again changed. Attention turned abdominally. The pelvis was copiously irrigated, and suction dried. Posterior aspect of uterus was inspected. No regions of perforation were noted. Therefore, pneumoperitoneum was released. Trocars were removed under direct visualization. The skin edges of the laparoscopic incision were reapproximated using 4-0 Monocryl in subcuticular fashion. The patient tolerated the procedure well overall. She will go to the PACU in stable condition. Specimen to Pathology. Sponge and needle counts were correct x2. PAULINE / SOHAM /[id number] ELIZA
== END 2020-02-24 15:40 | disposition home or self-care (01) ==
LOC: MW.SDS 11:46
PROVIDERS: ATTEND Obstetrics & Gynecology
DX: T83.32XA Displacement of intrauterine contraceptive device, initial encounter (principal); R63.4 Abnormal weight loss; N92.0 Excessive and frequent menstruation with regular cycle; Z79.899 Other long term (current) drug therapy; Z98.890 Other specified postprocedural states
CPT/HCPCS: 36415; 49329; 81025; 84439; 84443; 85027; 87635; J0690; J1100; J1885; J2001; J2175; J2250; J2405; J2704; J3010; J3490; J7120; 88300; U0002